=== PATIENT | female | born 1955 | race Caucasian/White ===

== ENCOUNTER 2020-10-10 23:21 | Emergency (ER) | payer BC ==
[~2020-10-10] VITALS: Ht 165.1 cm; Wt 73.9 kg
[2020-10-10] MEDS ORDERED: HYDROCODONE/APAP 5MG-325MG TAB PO ONE (23:45)
[2020-10-11] MEDS ORDERED: KETOROLAC TROMETHAMINE 30 MG/ML VIAL ONE (00:13)
== END 2020-10-11 00:55 | disposition home or self-care (01) ==
LOC: FSED 23:39
DX: R51.9 Headache, unspecified (principal); R25.2 Cramp and spasm
CPT/HCPCS: 70450; 80053; 85025; 99283; J1885